=== PATIENT | female | born 1955 | race Caucasian/White ===

== ENCOUNTER 2022-11-01 18:01 | Emergency (ER) | payer MEDICARE, BC ==
[2022-11-01] MEDS ORDERED: Lidocaine 5% 700 MG Patch TOP ONE (19:50)
== END 2022-11-01 20:02 | disposition home or self-care (01) ==
LOC: DL.ED 18:01
DX: M54.50 Low back pain, unspecified (principal); Z88.0 Allergy status to penicillin
CPT/HCPCS: 72100; 99283; A9270

== ENCOUNTER 2024-11-03 14:34 | Emergency (ER) | payer MEDICARE, BC ==
[2024-11-03] MEDS: Acetaminophen/HYDROcodone 325-5 MG Tab PO ONE (15:31)
[2024-11-03] MEDS: Ketorolac 30 MG/ML SDV IM ONE (15:32)
== END 2024-11-03 16:21 | disposition home or self-care (01) ==
LOC: DL.ED 14:34
DX: M54.42 Lumbago with sciatica, left side (principal); Z88.0 Allergy status to penicillin; Z88.8 Allergy status to other drugs, medicaments and biological substances; Z79.899 Other long term (current) drug therapy
CPT/HCPCS: 96372; 99283; A9270; J1885